=== PATIENT | female | born 1985 | race Caucasian/White ===

== ENCOUNTER 2017-11-16 22:13 | Emergency (ER) | payer SELFPAY ==
[~2017-11-16] VITALS: Ht 158.8 cm; Wt 60.0 kg
[2017-11-16 23:45] VITALS: BP 136/100
== END 2017-11-16 23:45 | disposition home or self-care (01) ==
LOC: EME 22:13
DX: F32.9 Major depressive disorder, single episode, unspecified (principal); F17.200 Nicotine dependence, unspecified, uncomplicated
CPT/HCPCS: 90837; 99281; 99283